=== PATIENT | male | born 1985 | race Caucasian/White ===

== ENCOUNTER 2023-02-06 10:59 | Day surgery (SDC) | payer OTHER, SELFPAY ==
[2023-02-06] VITALS (7 sets, daily range): BP systolic 85–137; BP diastolic 39–84; PULSE 58–69; RESP 16–18; TEMP 36.1–36.9; O2SAT 93–99; BMI 29.2
[2023-02-06] MEDS: Lactated Ringers 1,000 ML 15 ML IV (11:34)
--- NOTE | 2023-02-06 12:00 | COLBX_PTH ---
PATIENT: NICOLAS HDZ LOC: EN U#:[id number] AGE/SX: 37/M ROOM: RE02/06/[address]: Dr. Chris Cristobal DO : 1985 BED: DIS: 02/06/2023 SPEC #: [id number] RECD: 02/06/23 16:05 STATUS: RAFAELA REBlessing #: [id number] NIKKY: 02/06/23 12:[address]: Chris Cristobal DEPT: SURGICAL PATHOLOGY RECD BY: Haley Aguiar ENTERED: 02/07/23 08:08 SP TYPE: COLON BX OTHR DR: Beryl France DO Tissues: A - Duodenum, NOS B - Esophagus, NOS C - Ileum, NOS Procedures: Special Stain Group II Surgery Specimen Level IV Alcian Blue/PAS (control) HEADER OPERATION: Colonoscopy with biopsy, [place] [place] with biopsy PRE-OP DIAGNOSIS: GERD, constipation TISSUE SUBMITTED: A ? Duodenum biopsy, B ? Distal esophagus biopsy, C ? Terminal ileum biopsy MICROSCOPIC DIAGNOSIS A. Duodenum, biopsy: Fragments of duodenal mucosa with focal ulceration and associated acute inflammation. B. Distal esophagus, biopsy: Fragments of gastroesophageal mucosa with chronic inflammation. Intestinal metaplasia (goblet cell metaplasia) not identified. See comment. C. Terminal ileum, biopsy: Fragments of small intestinal mucosa with chronic active inflammation. See microscopic description and comment. SJ:yennifer 02/08/2023 COMMENT B. Alcian blue/PAS stain with matched control supports the above diagnosis. Increased number of eosinophils (>15% per high power field) are noted suggestive of eosinophilic esophagitis. Correlation with clinical, endoscopic findings and appropriate follow up are necessary. MICROSCOPIC DESCRIPTION Slides are reviewed. C. The specimen shows fragments of small intestinal mucosa and submucosa with focal ulceration, acute and chronic inflammatory cells infiltrate in the lamina propria, cryptitis and crypt abscesses. Glandular distortion and granulomas are not seen. GROSS DESCRIPTION A - Received in fixative is one container labeled with the patient's name and designated duodenum biopsy. The specimen consists of multiple irregular fragments of light rose soft tissue that in aggregate measure 1.0 x 0.5 x 0.1 cm. The specimen is totally submitted in one cassette. B - Received in fixative is one container labeled with the patient's name and designated distal esophagus biopsy. The specimen consists of two irregular fragments of light rose soft tissue that in aggregate measure 0.6 x 0.3 x 0.1 cm. The specimen is totally submitted in one cassette. C - Received in fixative is one container labeled with the patient's name and designated terminal ileum biopsy. The specimen consists of multiple irregular fragments of light rose soft tissue that in aggregate measure 0.8 x 0.5 x 0.1 cm. The specimen is totally submitted in one cassette. / AM:yennifer 02/07/2023 TC:2 CPT: 01572 x3, 51236
--- NOTE | 2023-02-06 12:03 | PCM.HP.STD ---
HPI - General General Date of Admission: 02/06/23 Date of Service: 02/06/23 Chief Complaint: Change in bowel habits, abdominal pain, gastroesophageal reflux disease HPI Narrative NICOLAS HDZ, is a 37 M who presented to the office for change in stool caliber, GERD; for consideration of EGD and colonoscopy. Pt reports he has IBS, doesn't tolerate red dye or certain other foods (mustard, bbq, alcohol) then stool is narrower and flatter, bowels spasms, can have bloating, can occas get to the point of diarrhea. No melena or hematochezia. Stool caliber change started about a year ago. If he takes psyllium husk that bulks up the stool. No nausea or vomiting. He does have acid reflux, exacerbated by heavy lifting, better if he takes omeprazole 20 mg, but only uses PPI x 2 wks, then takes a break from it. If he doesn't take a break then he gets diarrhea. No other meds for the reflux. No upper abdominal pain, just indigestion. No early satiety. Normal appetite. Weight is stable but he notes he had to add a hole to his belt. He eliminated pop, sugar; now eating more fruits which seems to help 07/2022 CBC and CMP unremarkable ROS Const Constitutional: No fatigue ENT ENT: No difficulty swallowing Gastro GI: Positive for abdominal pain, bloating, change in bowel habits, diarrhea, heartburn and excessive flatus; No belching, change in stool character, coffee ground emesis, constipation, cramping, difficulty swallowing, feeling full early, incontinent of stools, Vomiting blood/hematemesis, Blood in stool, loose stools, Black,tarry stools, nausea/dyspepsia, pain with swallowing, vomiting or other Musc Musculoskeletal: No joint pain Skin Skin: No yellowing of the eye or itchy eyes Psych Psychiatric: No anxiety and No depression Endo Endocrine: No fatigue Aller/Imm Allergy/Immunologic: No itchy eyes Bam/Lymp Hematologic/Lymphatic: No easy bleeding or easy bruising Exam Const General: cooperative and comfortable Nutritional Appearance: overweight Orientation: alert, awake and oriented x3 HENMT Head: normal to inspection Eyes Sclera: sclerae normal Resp Effort & Inspection: normal respiratory effort GI Inspection: normal to inspection Palpation: soft, no hepatosplenomegaly, no masses and nontender General: bladder normal to palpation Skin General: no rashes or lesions noted Psych Mood: euthymic mood Quality Reporting Tobacco Screening ([facility]) Smoking Status: Never smoker Assessment and Plan Assessment and Plan (1) GERD (gastroesophageal reflux disease): ?Status:?Chronic ?Plan: 36 yr old male with acid reflux, food sensitivities, change in stool caliber OK to resume psyllium husk capsules since that helped to bulk up his stool Rx pantoprazole 40 mg QAM, call if it causes diarrhea EGD to eval for esophagitis, Smith's, hiatal hernia, gastritis Colonoscopy to eval for stricture, mass or other cause for change in stool caliber f/u in office 2 wks after endoscopies (2) Decreased stool caliber: ?Status:?Chronic ?Plan: see above ? ? ? Medications: New pantoprazole 40 mg? PO QAM 30 tabs 5RF ? ? Discontinued omeprazole ?? Discontinued Reason:? Order Changed 20 mg? PO DAILY ? ? I have examined the patient and the H&P has been reviewed. There are no clinical changes since date of exam. [facility] Medical History (Updated 01/30/23 @ 12:31 by Luann Ochoa) Abdominal pain GERD (gastroesophageal reflux disease) History of COVID-19 Hypercholesteremia Non-smoker Prediabetes Home Medications pantoprazole 40 mg tablet,delayed release 40 mg PO QAM #30 tabs 11/20/22 [Rx Last Taken Unknown] Allergy/AdvReac Type Severity Reaction Status Date / Time No Known Allergies Allergy Verified 02/06/23 11:33 Family History Mother IBS (irritable bowel syndrome) Surgical History (Updated 01/30/23 @ 12:32 by Luann Ochoa) History of tonsillectomy History of wisdom tooth extraction Social History (Reviewed 11/20/22 @ 13:59 by Krissy Donald 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, 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) Smoking Status: Never smoker alcohol intake: current alcohol intake frequency: a few times a month substance use type: does not use caffeine: Yes Type: carbonated beverages Number of servings: 1 and tea Number of servings: 1 Vital Signs Vital Signs Vital Signs: 02/06/23 11:34 02/06/23 11:34 Temperature 98.4 F Temperature Source Temporal Pulse Rate 66 Respiratory Rate 18 Respiratory Pattern Normal Blood Pressure 137/84 H Blood Pressure Mean 101 Blood Pressure Source Monitor Blood Pressure Position Semi-Fowlers Blood Pressure Location Left Arm Pulse Ox 99 Oxygen Delivery Method Room Air Weight Weight: 192 lb Body Mass Index (BMI) 29.2
--- NOTE | 2023-02-06 12:47 | OP.EGD_ITS ---
Patient Name: Danilo Perales Procedure Date: 02/06/2023 12:03 PM Date of : 1985 Age: 37 Procedure: Upper GI endoscopy Indications: Heartburn Providers: Chris Cristobal DO Medicines: Monitored Anesthesia Care Patient Profile: This is a 37 year old male. Refer to note in patient chart for documentation of history and physical. Patient has symptoms of chronic heartburn. Complications: No immediate complications. Procedure: Pre-Anesthesia Assessment: - Prior to the procedure, a History and Physical was performed, and patient medications and allergies were reviewed. The patient is competent. The risks and benefits of the procedure and the sedation options and risks were discussed with the patient. All questions were answered and informed consent was obtained. Patient identification and proposed procedure were verified by the physician in the pre-procedure area. Mental Status Examination: alert and oriented. Airway Examination: normal oropharyngeal airway and neck mobility. Respiratory Examination: clear to auscultation. CV Examination: normal. Prophylactic Antibiotics: The patient does not require prophylactic antibiotics. Prior Anticoagulants: The patient has taken no previous anticoagulant or antiplatelet agents. ASA Grade Assessment: II - A patient with mild systemic disease. After reviewing the risks and benefits, the patient was deemed in satisfactory condition to undergo the procedure. The anesthesia plan was to use monitored anesthesia care (MAC). Immediately prior to administration of medications, the patient was re-assessed for adequacy to receive sedatives. The heart rate, respiratory rate, oxygen saturations, blood pressure, adequacy of pulmonary ventilation, and response to care were monitored throughout the procedure. The physical status of the patient was re-assessed after the procedure. After obtaining informed consent, the endoscope was passed under direct vision. Throughout the procedure, the patient's blood pressure, pulse, and oxygen saturations were monitored continuously. The Colonoscope was introduced through the mouth, and advanced to the second part of duodenum. The upper GI endoscopy was accomplished without difficulty. The patient tolerated the procedure well. Scope In: 12:18:02 PM Scope Out: 12:23:23 PM Total Procedure Duration Time 0 hours 5 minutes 21 seconds Findings: LA Grade B (one or more mucosal breaks greater than 5 mm, not extending between the tops of two mucosal folds) esophagitis with no bleeding was found 36 to 39 cm from the incisors. Biopsies were taken with a cold forceps for histology. Verification of patient identification for the specimen was done. Estimated blood loss was minimal. A small hiatal hernia was present. The entire examined stomach was normal. Localized mild inflammation characterized by congestion (edema) was found in the duodenal bulb. Biopsies were taken with a cold forceps for histology. Verification of patient identification for the specimen was done. Estimated blood loss was minimal. Impression: - LA Grade B reflux esophagitis. Biopsied. - Small hiatal hernia. - Normal stomach. - Chronic duodenitis. Biopsied. Recommendation: - Discharge patient to home. - Resume previous diet. - Continue present medications. - Await pathology results. - Use Protonix (pantoprazole) 40 mg PO BID for 8 weeks. Procedure Code(s): --- Professional --- 83600, Esophagogastroduodenoscopy, flexible, transoral; with biopsy, single or multiple CPT copyright 2017 [employer]. All rights reserved. The codes documented in this report are preliminary and upon epoxy coatings installer review may be revised to meet current compliance requirements. Chris Cristobal DO 02/06/2023 12:47:19 PM This report has been signed electronically. Number of Addenda: 0 Note Initiated On: 02/06/2023 12:03 PM
--- NOTE | 2023-02-06 12:48 | OP.CCLET_ITS ---
02/06/2023 Beryl France Do Re : Upper GI endoscopy procedure for Danilo Perales Dear Román This procedure was performed on Monday, February 06, 2023. My impressions and recommendations are as follows: Impressions : - LA Grade B reflux esophagitis. Biopsied. - Small hiatal hernia. - Normal stomach. - Chronic duodenitis. Biopsied. Recommendations : - Discharge patient to home. - Resume previous diet. - Continue present medications. - Await pathology results. - Use Protonix (pantoprazole) 40 mg PO BID for 8 weeks. My findings are described in the full procedure note, which is enclosed. If I can be of further assistance, please feel free to contact me at . Sincerely, Chris Cristobal, 02/06/2023 12:47:19 PM This report has been signed electronically.
--- NOTE | 2023-02-06 12:55 | OP.COLON_ITS ---
Patient Name: Danilo Perales Procedure Date: 02/06/2023 12:23 PM Date of : 1985 Age: 37 Procedure: Colonoscopy Indications: Incidental abdominal distress noted, Incidental change in bowel habits noted, Incidental constipation noted Providers: Chris Cristobal DO Medicines: Monitored Anesthesia Care Patient Profile: This is a 37 year old male. Refer to note in patient chart for documentation of history and physical. Patient has symptoms of chronic heartburn. Last Colonoscopy: none. The patient's first colonoscopy is today. Complications: No immediate complications. Procedure: Pre-Anesthesia Assessment: - Prior to the procedure, a History and Physical was performed, and patient medications and allergies were reviewed. The patient is competent. The risks and benefits of the procedure and the sedation options and risks were discussed with the patient. All questions were answered and informed consent was obtained. Patient identification and proposed procedure were verified by the physician in the pre-procedure area. Mental Status Examination: alert and oriented. Airway Examination: normal oropharyngeal airway and neck mobility. Respiratory Examination: clear to auscultation. CV Examination: normal. Prophylactic Antibiotics: The patient does not require prophylactic antibiotics. Prior Anticoagulants: The patient has taken no previous anticoagulant or antiplatelet agents. ASA Grade Assessment: II - A patient with mild systemic disease. After reviewing the risks and benefits, the patient was deemed in satisfactory condition to undergo the procedure. The anesthesia plan was to use monitored anesthesia care (MAC). Immediately prior to administration of medications, the patient was re-assessed for adequacy to receive sedatives. The heart rate, respiratory rate, oxygen saturations, blood pressure, adequacy of pulmonary ventilation, and response to care were monitored throughout the procedure. The physical status of the patient was re-assessed after the procedure. - Prior to the procedure, a History and Physical was performed, and patient medications and allergies were reviewed. The patient is competent. The risks and benefits of the procedure and the sedation options and risks were discussed with the patient. All questions were answered and informed consent was obtained. Patient identification and proposed procedure were verified by the physician in the pre-procedure area. Mental Status Examination: alert and oriented. Airway Examination: normal oropharyngeal airway and neck mobility. Respiratory Examination: clear to auscultation. ASA Grade Assessment: II - A patient with mild systemic disease. After reviewing the risks and benefits, the patient was deemed in satisfactory condition to undergo the procedure. The anesthesia plan was to use moderate sedation / analgesia (conscious sedation). Immediately prior to administration of medications, the patient was re-assessed for adequacy to receive sedatives. The heart rate, respiratory rate, oxygen saturations, blood pressure, adequacy of pulmonary ventilation, and response to care were monitored throughout the procedure. The physical status of the patient was re-assessed after the procedure. After I obtained informed consent, the scope was passed under direct vision. Throughout the procedure, the patient's blood pressure, pulse, and oxygen saturations were monitored continuously. The Colonoscope was introduced through the anus and advanced to the terminal ileum. Scope In: 12:25:45 PM Scope Withdrawal Time 0 hours 7 minutes 51 seconds Scope Out: 12:38:15 PM Total Procedure Duration Time 0 hours 12 minutes 30 seconds Findings: The perianal and digital rectal examinations were normal. The colon (entire examined portion) appeared normal. The terminal ileum contained multiple four mm ulcers. No bleeding was present. Biopsies were taken with a cold forceps for histology. Verification of patient identification for the specimen was done by the physician. Estimated blood loss was minimal. Impression: - The entire examined colon is normal. - Multiple ulcers in the terminal ileum. Biopsied. Recommendation: - Discharge patient to home. - Resume previous diet. - Continue present medications. - Await pathology results. - Repeat colonoscopy in 1 year to check healing. Procedure Code(s): --- Professional --- 59777, Colonoscopy, flexible; with biopsy, single or multiple CPT copyright 2017 [employer]. All rights reserved. The codes documented in this report are preliminary and upon certified professional coder review may be revised to meet current compliance requirements. Chris Cristobal DO 02/06/2023 12:54:30 PM This report has been signed electronically. Number of Addenda: 0 Note Initiated On: 02/06/2023 12:23 PM
--- NOTE | 2023-02-06 12:55 | OP.CCLET_ITS ---
02/06/2023 Beryl France Do Re : Colonoscopy procedure for Danilo Perales Dear Román This procedure was performed on Monday, February 06, 2023. My impressions and recommendations are as follows: Impressions : - The entire examined colon is normal. - Multiple ulcers in the terminal ileum. Biopsied. Recommendations : - Discharge patient to home. - Resume previous diet. - Continue present medications. - Await pathology results. - Repeat colonoscopy in 1 year to check healing. My findings are described in the full procedure note, which is enclosed. If I can be of further assistance, please feel free to contact me at . Sincerely, Chris Cristobal, 02/06/2023 12:54:30 PM This report has been signed electronically.
== END 2023-02-06 13:39 | disposition home or self-care (01) ==
LOC: EN 11:06 → AC 11:06
PROVIDERS: PCP Family Medicine; Referring Provider Internal Medicine Gastroenterology; Visit Provider Internal Medicine Gastroenterology
PROC: 0DJD8ZZ Inspection of Lower Intestinal Tract, Via Natural or Artificial Opening Endoscopic (ICD-10-PCS; CPT 45378; principal; 2023-02-06 11:55)
DX: K21.00 Gastro-esophageal reflux disease with esophagitis, without bleeding (principal); K44.9 Diaphragmatic hernia without obstruction or gangrene; K29.80 Duodenitis without bleeding; E78.00 Pure hypercholesterolemia, unspecified; K63.3 Ulcer of intestine
CPT/HCPCS: 43239; 45380; 88305; 88313; J7120; J2405

== ENCOUNTER → 2023-02-13 | Outpatient (CLI) | payer OTHER, SELFPAY ==
[2023-02-13 15:48] LABS: Absolute Lymphocyte Count 2.36 X10^3/uL (0.83-4.51); Absolute Neutrophil Count 4.5 X10^3/uL (2.0-7.7); Basophil# 0.03 X10^3/uL; Basophil% 0.4 % (0-1); Eosinophil# 0.21 X10^3/uL; Eosinophils% 2.6 % (0-5); Hematocrit 44.9 % (40-54); Hemoglobin 15.4 g/dL (13.0-16.5); Lymphocyte # 2.36 X10^3/ul (0.83-4.51); Lymphocyte % 29.7 % (19-41); Mean Corp Hgb Conc 34.3 g/dL (32-36); Mean Corpuscular Hgb 31.4 pg (27.0-32.0); Mean Corpuscular Volume 91.6 fL (80-94); Mean Platelet Vol. 9.9 fl (6.2-12.0); Monocyte% 10.1 % (0-10); NRBC Flagged by Analyzer 0 % (0-5); Neutrophil # 4.51 X10^3/uL (2.7-7.7); Neutrophil % 56.7 % (47-70); Platelet Count 320 K/mm3 (150-450); RBC Distribution Width CV 12.3 % (11.6-14.6); RBC Distribution Width SD 40.7 fl (35.1-43.9)
[2023-02-13 16:13] LABS: Erythrocyte Sedimentation Rate 4 mm/hr (0-20)
[2023-02-13 16:14] LABS: ALB/GLOB Ratio 1.2 RATIO (0.9-2.4); AST(SGOT) 11 U/L (15-37); Alanine Aminotransfer ALT/SGPT 28 U/L (16-61); Albumin, Serum 4.1 g/dL (3.2-5.0); Alkaline Phosphatase 50 U/L (45-117); Anion Gap 5 (5-15); BUN 17 mg/dL (7-18); CRP < 2.90 mg/L (0.0-3.0); Calcium,Total 9.5 mg/dL (8.5-10.1); Chloride 106 mmol/L (98-107); EST Glomerular Filtration Rate 89 mL/min (>60); Est Glom Filt Rate - Afr Amer 108 mL/min (>60); Globulin 3.4 g/dL (2.2-4.2); Glucose 92 mg/dL (74-106); LDH 151 U/L (87-241); Protein, Total 7.5 g/dL (6.4-8.2); Sodium Level 138 mmol/L (136-145)
[2023-02-15 16:09] LABS: Endomysial Antibody IgA Negative (Negative); Immunoglobulin A 162 mg/dL (90-386); t-Transglutaminase IgA <2 U/mL (0-3)
[2023-02-17 19:07] LABS: Anti-Centromere B Ab <0.2 AI (0.0-0.9); Anti-Chromatin <0.2 AI (0.0-0.9); Anti-Jo <0.2 AI (0.0-0.9); Anti-Scleroderma-70 AB <0.2 AI (0.0-0.9); Anti-dsDNA Ab 1 IU/mL (0-9); Beef <0.10 kU/L (Class 0); Chocolate <0.10 kU/L (Class 0); Corn 1.02 kU/L (Class II); Egg, Whole 0.74 kU/L (Class II); Milk (Cow) 0.12 kU/L (Class 0/I); Peanut 1.95 kU/L (Class III); Pork 0.14 kU/L (Class 0/I); RNP Ab <0.2 AI (0.0-0.9); SJOGREN'S Anti-SS-A test < 0.2 AI (0.0-0.9); SJOGREN'S Anti-SS-B test < 0.2 AI (0.0-0.9); Smith Ab <0.2 AI (0.0-0.9); Wheat 4.45 kU/L (Class IV)
[2023-02-18 08:08] LABS: Albumin 4.1 g/dL (2.9-4.4); Alpha-1-Globulins 0.2 g/dL (0.0-0.4); Alpha-2-Globulins 0.8 g/dL (0.4-1.0); Cytoplasmic Ab (C-ANCA) <1:20 titer (Neg:<1:20); Gamma Globulin 0.9 g/dL (0.4-1.8); Immunoglobulin A 166 mg/dL (90-386); Immunoglobulin E 741 IU/mL (6-495); Immunoglobulin G 772 mg/dL (603-1613); Immunoglobulin M 138 mg/dL (20-172); PROEL- TOTAL PROTEIN 7.1 g/dL (6.0-8.5); Perinuclear Ab (P-ANCA) <1:20 titer (Neg:<1:20)
== END | disposition home or self-care (01) ==
PROVIDERS: PCP Family Medicine; Referring Provider Nurse Practitioner Adult Health; Visit Provider Nurse Practitioner Adult Health
DX: K50.00 Crohn's disease of small intestine without complications (principal); R10.9 Unspecified abdominal pain
CPT/HCPCS: 36415; 80053; 82784; 82785; 83516; 83615; 84165; 85025; 85652; 86003; 86005; 86140; 86225; 86235; 86255; 86256; 86334

== ENCOUNTER → 2023-02-15 | Outpatient (CLI) | payer OTHER, SELFPAY ==
[2023-02-23 16:09] LABS: Calprotectin, Stool 92 ug/g (0-120)
== END | disposition home or self-care (01) ==
PROVIDERS: PCP Family Medicine; Visit Provider Nurse Practitioner Adult Health
DX: K50.00 Crohn's disease of small intestine without complications (principal)
CPT/HCPCS: 83630; 83993